=== PATIENT | female | born 2000 | race African-American/Black ===

== ENCOUNTER 2020-08-08 12:14 | Emergency (ER) | payer OTHER ==
[2020-08-08 13:12] LABS: Bilirubin Neg (Negative); Blood, Urine Negative (Negative); Clarity Clear (Clear); Glucose, Urine (Dipstick) Normal (Negative); Ketone, Urine Negative (Negative); Leukocyte Negative (Negative); Nitrite Negative (Negative); Protein, Urine (Dipstick) Negative (Neg-Trace); Specific Gravity, Urine 1.005 (1.002-1.036); Urobilinogen Normal mg/dL (Less than 2)
[2020-08-10 18:49] LABS: Chlamydia by PCR Not Detected (NotDetected); GC by PCR Not Detected (NotDetected)
== END 2020-08-08 16:15 | disposition home or self-care (01) ==
LOC: CSHERS 12:14
DX: N76.0 Acute vaginitis (principal); B96.89 Other specified bacterial agents as the cause of diseases classified elsewhere; F17.210 Nicotine dependence, cigarettes, uncomplicated
CPT/HCPCS: 81003; 87480; 87491; 87510; 87591; 87660; 99283

== ENCOUNTER 2021-10-08 20:56 | Emergency (ER) | payer OTHER ==
[2021-10-08] MEDS ORDERED: Fluorescein Opthalmic Strip ONE (21:51)
[2021-10-08] MEDS ORDERED: Tetracaine 0.5% PF 4 ML BOT ONE (21:51)
== END 2021-10-08 22:14 | disposition home or self-care (01) ==
LOC: CSHERS 20:56
DX: H10.211 Acute toxic conjunctivitis, right eye (principal); F17.210 Nicotine dependence, cigarettes, uncomplicated
CPT/HCPCS: 99283

== ENCOUNTER 2022-04-16 19:15 | Emergency (ER) | payer OTHER ==
[2022-04-16 20:18] LABS: Bilirubin Neg (Negative); Blood, Urine 250 (Negative); Clarity Clear (Clear); Glucose, Urine (Dipstick) Normal (Negative); Ketone, Urine 15 mg/dL (Negative); Leukocyte 25 (Negative); Nitrite Negative (Negative); Protein, Urine (Dipstick) 15 mg/dl (Neg-Trace)
[2022-04-16 20:19] LABS: Pregnancy Test - Urine (BHCG) POSITIVE (Negative)
[2022-04-16 20:21] LABS: Pregu Control Background? CLEAR/WHITE (CLR/WHITE); Pregu Control Bar Appear? YES (CONTROL BAR)
[2022-04-16 20:22] LABS: Bacteria/HPF 1+ HPF (None Seen); RBC/HPF 21-50 HPF (0-3); Squamous Epithelial 0-3 HPF (0-3); WBC/HPF 0-3 HPF (0-3)
[2022-04-16 21:07] LABS: #Eosinphils 0.1 10x3/uL (0.0-0.5); #Monocytes 0.4 10x3/uL (0.0-1.1); #Neutrophils 3.6 10x3/uL (1.5-8.4); %Basophils 0.6 % (0.0-2.0); %Eosinophils 1.4 % (0.0-6.0); %Lymphocytes 35.2 % (18.0-47.0); %Monocytes 6.6 % (0.0-10.0); %Neutrophils 55.9 % (40.0-75.0); Hemoglobin 12.4 g/dL (12.0-15.5); Mean Corpuscular HGB CONC 36.2 g/dL (32.0-36.0); Mean Corpuscular Hemoglobin 31.7 pg (27.0-33.0); Mean Corpuscular Volume 87.7 fl (81.6-98.3); Mean Platelet Volume 9.4 fl (7.4-10.4); Platelet Count 309 10x3/uL (150-450); RBC Distribution Width 11.8 % (11.5-14.5); Red Blood Cell (RBC) Count 3.91 10x6/uL (3.90-5.03); White Blood Cell (WBC) Count 6.5 10x3/uL (3.5-10.5)
== END 2022-04-16 23:45 | disposition home or self-care (01) ==
LOC: CSHERS 19:15
DX: O20.0 Threatened abortion (principal); F17.290 Nicotine dependence, other tobacco product, uncomplicated; Z3A.01 Less than 8 weeks gestation of pregnancy
CPT/HCPCS: 36415; 76856; 81003; 81015; 81025; 84702; 85025; 86900; 86901